=== PATIENT | female | born 1945 | race Caucasian/White ===

== ENCOUNTER 2017-09-04 06:04 | Inpatient (IN) | payer MEDICARE, OTHER ==
[~2017-09-04] VITALS: Ht 152.4 cm; Wt 71.8 kg
[~2017-09-04 06:04] MED LIST: CLINDAMYCIN 600 MG/D5% WATER 50 ML IV ONE; RINGERS SOLUTION,LACTATED 1,000 ML IV ONE
[2017-09-04] MEDS ORDERED: VANCOMYCIN HCL 1 GM/VIAL ONE (06:55)
[2017-09-04] MEDS ORDERED: BUPIVACAINE HCL/PF 0.5% 30 ML VIAL ONE (06:55)
[2017-09-04] MEDS ORDERED: CYCLOBENZAPRINE HCL 10 MG TABLET PO PRN (07:00)
[2017-09-04] MEDS ORDERED: FentaNYL CITRATE-PF 100 MCG/2 ML VIAL IVP PRN (07:00)
[2017-09-04] MEDS ORDERED: MEPERIDINE-PF 25 MG/ML SYRINGE IVP PRN (07:00)
[2017-09-04] MEDS ORDERED: BUPIVACAINE LIPOSOME/PF 1.3%-13.3MG/ML SUSPENSION 10 ML VIAL INJ ONE (07:00)
[2017-09-04] MEDS ORDERED: ZOLPIDEM TARTRATE 5 MG TABLET PO PRN (07:00)
[2017-09-04] MEDS ORDERED: ONDANSETRON HCL 4 MG/2 ML VIAL IVP PRN ×2 (07:00→07:45)
[2017-09-04] MEDS ORDERED: PROMETHAZINE HCL 25 MG/ML VIAL IM PRN (07:00)
[2017-09-04] MEDS ORDERED: HYDROmorphone 2 MG/ML SYRINGE IVP PRN (07:00)
[2017-09-04] MEDS ORDERED: INSLAN SQ (07:02)
[2017-09-04] MEDS ORDERED: SIMV-261 PO (07:02)
[2017-09-04] MEDS ORDERED: HYDR25TA PO (07:02)
[2017-09-04] MEDS ORDERED: PRAM0.258 PO (07:02)
[2017-09-04] MEDS ORDERED: OMEG10005 PO (07:02)
[2017-09-04] MEDS ORDERED: RABE20TA60 PO (07:02)
[2017-09-04] MEDS ORDERED: METF500T4 PO (07:02)
[2017-09-04] MEDS ORDERED: FOSI20 PO (07:02)
[2017-09-04 07:06] LABS: BASOPHILS % (AUTO) 0.5 % (0.0-2.0); EOSINOPHILS % (AUTO) 4.2 % (1.0-6.0); HEMATOCRIT 36.9 % (36-46); HEMOGLOBIN 12.5 g/dL (12.0-16.0); LYMPHOCYTES # (AUTO) 1.7 K/uL (1.0-4.8); LYMPHOCYTES % (AUTO) 24.7 % (22.0-44.0); MEAN CORPUSCULAR HEMOGLOBIN 30.5 pg (26.0-34.0); MEAN CORPUSCULAR HGB CONC 33.8 G/dL (31.0-37.0); MEAN CORPUSCULAR VOLUME 90 fL (80-100); MONOCYTES # (AUTO) 0.4 K/uL (0.1-1.0); MONOCYTES % (AUTO) 6.2 % (2.0-9.0); NEUTROPHILS # (AUTO) 4.3 K/uL (1.8-7.7); NEUTROPHILS % (AUTO) 64.4 % (40.0-70.0); PLATELET COUNT (AUTO) 152 K/uL (150-450); RED BLOOD CELL COUNT(AUTO) 4.08 MIL/uL (4.00-5.20); RED CELL DISTRIBUTION WIDTH 13.2 % (11.5-14.5)
[2017-09-04 07:11] LABS: CALCIUM, TOTAL 9.3 mg/dL (8.8-10.5); CREATININE 1.25 mg/dL (0.60-1.30); POTASSIUM 3.7 mmol/L (3.5-5.1)
[2017-09-04 07:12] LABS: PROTHROMBIN TIME 10.6 SEC (9.4-11.6)
[2017-09-04 07:17] LABS: ALBUMIN 3.7 g/dL (3.4-5.0); BILIRUBIN,TOTAL 0.3 mg/dL (0.1-1.0)
[2017-09-04] MEDS ORDERED: ZOLPIDEM TARTRATE 10 MG TABLET PO PRN (07:45)
[2017-09-04] MEDS ORDERED: DiphenhydrAMINE HCL 50 MG/ML VIAL IVP PRN (07:45)
[2017-09-04] MEDS ORDERED: BENZOCAINE/MENTHOL LOZENGE [8 LOZENGES/PACKET] PO PRN (07:45)
[2017-09-04] MEDS ORDERED: MAG HYDROX/AL HYDROX/SIMETH 30 ML SUSP UDCUP PO PRN (07:45)
[2017-09-04] MEDS: OXYGEN THERAPY IH SCH ×2 (08:00→20:00)
[2017-09-04] MEDS: DOCUSATE SODIUM 100 MG CAPSULE PO SCH ×2 (09:00→21:06)
[2017-09-04] MEDS ORDERED: HYDROmorphone 2 MG/ML SYRINGE ONE (09:28)
[2017-09-04] MEDS: HYDROmorphone 2 MG/ML SYRINGE IVP PRN ×2 (09:35→09:43)
[2017-09-04 09:50] VITALS: BP 174/76
[2017-09-04] MEDS ORDERED: ONDANSETRON HCL 4 MG/2 ML VIAL IVP ONE (12:00)
[2017-09-04] MEDS ORDERED: LIDOCAINE HCL/PF 2% 5 ML VIAL INJ ONE (12:00)
[2017-09-04] MEDS ORDERED: PROPOFOL 1% 20 ML VIAL IVP ONE (12:00)
[2017-09-04] MEDS ORDERED: METOCLOPRAMIDE HCL 5 MG/ML 2 ML VIAL IVP ONE (12:00)
[2017-09-04] MEDS ORDERED: SUCCINYLCHOLINE CHLORIDE 20 MG/ML 10 ML VIAL IVP ONE (12:00)
[2017-09-04] MEDS ORDERED: KETOROLAC TROMETHAMINE 60 MG/2 ML VIAL IM ONE (12:00)
[2017-09-04] MEDS ORDERED: EPHEDrine SULFATE 50 MG/ML VIAL IM ONE (12:00)
[2017-09-04] MEDS ORDERED: FentaNYL CITRATE-PF 100 MCG/2 ML VIAL IVP ONE (12:00)
[2017-09-04] MEDS ORDERED: MIDAZOLAM HCL 2 MG/2 ML VIAL IVP ONE (12:00)
[2017-09-04] MEDS ORDERED: 0.9% SODIUM CHLORIDE 10 ML VIAL IVP ONE (12:00)
[2017-09-04 16:32] VITALS: BP 143/75
[2017-09-04 17:43] LABS: GLUCOMETER DEV NAME(LOC) 4S 8; GLUCOSE,POINT OF CARE 161 MG/DL (70-110)
[2017-09-04] MEDS ORDERED: INFLUENZA VIRUS VACCINE QVS 2017-18 (3YR+)/PF 60 MCG/0.5 ML SYRINGE IM ONE (18:00)
[2017-09-04] MEDS: OxyCODONE HCL 5 MG IR TABLET PO PRN ×2 (18:35→23:36)
[2017-09-04] MEDS: MetFORMIN HCL 500 MG TABLET PO SCH (18:37)
[2017-09-04 20:23] VITALS: BP 136/84
[2017-09-04] MEDS ORDERED: RABEPRAZOLE SODIUM 20 MG PO SCH (21:00)
[2017-09-04] MEDS ORDERED: OMEGA-3/DHA/EPA/FISH OIL 500 MG CAPSULE PO SCH (21:00)
[2017-09-04] MEDS ORDERED: SIMVASTATIN 40 MG TABLET PO SCH (21:00)
[2017-09-04] MEDS ORDERED: PRAMIPEXOLE DI-HCL 0.25 MG TABLET PO SCH (21:00)
[2017-09-04] MEDS ORDERED: INSULIN GLARGINE,HUM.REC.ANLOG 100 UNITS/ML SQ SCH (21:00)
[2017-09-04 22:32] LABS: GLUCOMETER DEV NAME(LOC) PV 4E; GLUCOSE,POINT OF CARE 150 MG/DL (70-110)
[2017-09-04 23:38] VITALS: BP 131/75
[2017-09-05 04:25] VITALS: BP 110/54
[2017-09-05] MEDS: OxyCODONE HCL 5 MG IR TABLET PO PRN ×3 (04:32→09:12)
[2017-09-05 06:33] LABS: GLUCOMETER DEV NAME(LOC) PV 4E; GLUCOSE,POINT OF CARE 63 MG/DL (70-110)
[2017-09-05 07:47] VITALS: BP 128/61
[2017-09-05] MEDS: MetFORMIN HCL 500 MG TABLET PO SCH (08:50)
[2017-09-05] MEDS: DOCUSATE SODIUM 100 MG CAPSULE PO SCH (08:53)
[2017-09-05] MEDS ORDERED: FOSINOPRIL SODIUM 20 MG TABLET PO SCH (09:00)
[2017-09-05] MEDS ORDERED: HYDROCHLOROTHIAZIDE 25 MG TABLET PO SCH (09:00)
[2017-09-05 14:28] LABS: GLUCOMETER DEV NAME(LOC) PV 4E; GLUCOSE,POINT OF CARE 116 MG/DL (70-110)
[2017-10-20] MEDS ORDERED: INSLAN SQ (11:16)
[2017-10-20] MEDS ORDERED: METF500T4 PO (11:16)
[2017-10-20] MEDS ORDERED: LISI-662 PO (11:16)
== END 2017-09-05 10:15 | disposition home or self-care (01) | DRG 517 ==
LOC: 4E 06:05
PROVIDERS: ADMIT Orthopaedic Surgery Orthopaedic Surgery of the Spine; ATTEND Orthopaedic Surgery Orthopaedic Surgery of the Spine
PROC: 01NB0ZZ Release Lumbar Nerve, Open Approach (ICD-10-PCS; principal; 2017-09-04 07:50)
DX: M48.07 Spinal stenosis, lumbosacral region (principal); E11.9 Type 2 diabetes mellitus without complications; I10 Essential (primary) hypertension; E66.3 Overweight; K21.9 Gastro-esophageal reflux disease without esophagitis; Z68.30 Body mass index [BMI] 30.0-30.9, adult; Z88.0 Allergy status to penicillin; Z88.5 Allergy status to narcotic agent; Z90.710 Acquired absence of both cervix and uterus; Z85.038 Personal history of other malignant neoplasm of large intestine; Z87.891 Personal history of nicotine dependence
CPT/HCPCS: 82962; 87081; 93005; 97162; 97165; 97535; G0238; J0330; J1170; J1815; J1885; J2250; J2405; J2704; J2765; J3010; J3370; J3490; J7120

== ENCOUNTER 2017-10-23 09:34 | Inpatient (IN) | payer MEDICARE, OTHER ==
[~2017-10-23] VITALS: Ht 152.4 cm; Wt 61.4 kg
[~2017-10-23 09:34] MED LIST changes: +HYDR25TA PO; +INSLAN SQ; +LISI-662 PO; +METF500T4 PO; +OMEG10005 PO; +PRAM0.258 PO; +RABE20TA60 PO; +SIMV-261 PO
[2017-10-23 10:37] LABS: GLUCOMETER DEV NAME(LOC) SDS 5; GLUCOSE,POINT OF CARE 129 MG/DL (70-110)
[2017-10-23] MEDS ORDERED: BUPIVACAINE LIPOSOME/PF 1.3%-13.3MG/ML SUSPENSION 20 ML VIAL INJ ONE (11:45)
[2017-10-23] MEDS ORDERED: BUPIVACAINE HCL/PF 0.5% 30 ML VIAL ONE (11:52)
[2017-10-23] MEDS ORDERED: GUM MASTIC/STORAX/MSAL/ALCOHOL LIQUID 0.67 ML VIAL TP ONE (11:52)
[2017-10-23] MEDS ORDERED: VANCOMYCIN HCL 1 GM/VIAL ONE (11:52)
[2017-10-23] MEDS ORDERED: ZOLPIDEM TARTRATE 10 MG TABLET PO PRN ×2 (12:00→13:15)
[2017-10-23] MEDS ORDERED: PROMETHAZINE HCL 12.5 MG in SODIUM CHLORIDE 0.9% 50 ML IV PRN (12:00)
[2017-10-23] MEDS ORDERED: DiphenhydrAMINE HCL 50 MG/ML VIAL IVP PRN (12:00)
[2017-10-23] MEDS ORDERED: BENZOCAINE/MENTHOL LOZENGE [8 LOZENGES/PACKET] PO PRN (12:00)
[2017-10-23] MEDS ORDERED: KETAMINE HCL 50 MG/ML 10 ML VIAL ONE (12:25)
[2017-10-23] MEDS ORDERED: RINGERS SOLUTION,LACTATED 1,000 ML IV ONE (12:32)
[2017-10-23] MEDS ORDERED: HYDROmorphone 2 MG/ML SYRINGE IVP PRN (13:00)
[2017-10-23] MEDS ORDERED: HYDROmorphone 2 MG/ML SYRINGE ONE (14:08)
[2017-10-23] MEDS ORDERED: ACETAMINOPHEN 1000 MG/ISO-OSM 100 ML IV ONE (14:08)
[2017-10-23] MEDS: ACETAMINOPHEN 1000 MG/ISO-OSM 100 ML IV SCH ×2 (14:13→20:27)
[2017-10-23 14:53] VITALS: BP 164/79
[2017-10-23 16:10] VITALS: BP 130/64
[2017-10-23] MEDS: CYCLOBENZAPRINE HCL 10 MG TABLET PO SCH ×2 (16:30→20:27)
[2017-10-23 20:07] VITALS: BP 159/81
[2017-10-23] MEDS: DOCUSATE SODIUM 100 MG CAPSULE PO SCH (20:27)
[2017-10-23] MEDS ORDERED: SODIUM CHLORIDE 0.9% 500 ML IV ONE (21:19)
[2017-10-23 21:32] LABS: GLUCOMETER DEV NAME(LOC) PV 4E; GLUCOSE,POINT OF CARE 398 MG/DL (70-110)
[2017-10-23] MEDS ORDERED: INSULIN GLARGINE,HUM.REC.ANLOG 100 UNITS/ML SQ SCH (21:45)
[2017-10-23] MEDS ORDERED: PRAMIPEXOLE DI-HCL 0.25 MG TABLET PO SCH (23:15)
[2017-10-24 00:08] VITALS: BP 133/64
[2017-10-24] MEDS ORDERED: MIDAZOLAM HCL 2 MG/2 ML VIAL IVP ONE (01:23)
[2017-10-24] MEDS ORDERED: FentaNYL CITRATE-PF 100 MCG/2 ML VIAL IVP ONE (01:23)
[2017-10-24] MEDS ORDERED: DEXAMETHASONE SOD PHOS 4 MG/ML VIAL IVP ONE (04:51)
[2017-10-24] MEDS ORDERED: EPHEDrine SULFATE 50 MG/ML VIAL IM ONE (04:51)
[2017-10-24] MEDS ORDERED: LIDOCAINE HCL/PF 2% 5 ML VIAL INJ ONE (04:51)
[2017-10-24] MEDS ORDERED: GLYCOPYRROLATE 0.2 MG/ML VIAL IM ONE (04:51)
[2017-10-24] MEDS ORDERED: PROPOFOL 1% 20 ML VIAL IVP ONE (04:52)
[2017-10-24] MEDS ORDERED: ONDANSETRON HCL 4 MG/2 ML VIAL IVP ONE (04:52)
[2017-10-24] MEDS ORDERED: SUCCINYLCHOLINE CHLORIDE 20 MG/ML 10 ML VIAL IVP ONE (04:52)
[2017-10-24] MEDS ORDERED: METOCLOPRAMIDE HCL 5 MG/ML 2 ML VIAL IVP ONE (04:52)
[2017-10-24] MEDS ORDERED: ROCURONIUM BROMIDE 10 MG/ML 5 ML VIAL IVP ONE (04:52)
[2017-10-24] MEDS ORDERED: NEOSTIGMINE METHYLSULFATE 1 MG/ML 10 ML VIAL IVP ONE (04:52)
[2017-10-24] MEDS: ACETAMINOPHEN 1000 MG/ISO-OSM 100 ML IV SCH (05:55)
[2017-10-24 06:05] VITALS: BP 132/65
[2017-10-24 08:08] VITALS: BP 160/74
[2017-10-24] MEDS: DOCUSATE SODIUM 100 MG CAPSULE PO SCH (08:58)
[2017-10-24] MEDS: CYCLOBENZAPRINE HCL 10 MG TABLET PO SCH (08:59)
[2017-10-24] MEDS: MetFORMIN HCL 500 MG TABLET PO SCH ×2 (08:59→17:30)
[2017-10-24 09:52] LABS: GLUCOMETER DEV NAME(LOC) PV 4E; GLUCOSE,POINT OF CARE 333 MG/DL (70-110)
[2017-10-24 12:00] VITALS: BP 154/58
[2017-10-24] MEDS ORDERED: OxyCODONE HCL/ACETAMINOPHEN 5-325 MG TABLET PO PRN (13:00)
[2017-10-24 16:00] VITALS: BP 149/73
== END 2017-10-24 17:35 | disposition home or self-care (01) | DRG 520 ==
LOC: 4E 09:34
PROVIDERS: ADMIT Orthopaedic Surgery Orthopaedic Surgery of the Spine; ATTEND Orthopaedic Surgery Orthopaedic Surgery of the Spine
PROC: 00NY0ZZ Release Lumbar Spinal Cord, Open Approach (ICD-10-PCS; principal; 2017-10-23 11:45)
DX: M99.23 Subluxation stenosis of neural canal of lumbar region (principal); G47.33 Obstructive sleep apnea (adult) (pediatric); K21.9 Gastro-esophageal reflux disease without esophagitis; I10 Essential (primary) hypertension; Z79.899 Other long term (current) drug therapy; Z88.0 Allergy status to penicillin; Z88.5 Allergy status to narcotic agent; Z90.710 Acquired absence of both cervix and uterus; Z90.89 Acquired absence of other organs
CPT/HCPCS: 82962; 87081; 93005; 97161; 97165; C9290; J0131; J0330; J1100; J1170; J1815; J2250; J2405; J2704; J2765; J3010; J3370; J3490; J7040; J7120

== ENCOUNTER 2018-04-22 15:58 | Emergency (ER) | payer MEDICARE, OTHER ==
[~2018-04-22] VITALS: Ht 152.4 cm; Wt 60.5 kg
[~2018-04-22 15:58] MED LIST changes: -CLINDAMYCIN 600 MG/D5% WATER 50 ML IV ONE; -METF500T4 PO; +METF500T6 PO; -RINGERS SOLUTION,LACTATED 1,000 ML IV ONE
[2018-04-22] MEDS ORDERED: KETOROLAC TROMETHAMINE 30 MG/ML VIAL IVP ONE (16:15)
[2018-04-22] MEDS ORDERED: SODIUM CHLORIDE 0.9% 1,000 ML IV ONE (16:15)
[2018-04-22] MEDS ORDERED: ONDANSETRON HCL 4 MG/2 ML VIAL IVP ONE (16:15)
[2018-04-22 16:31] LABS: BASOPHILS % (AUTO) 0.6 % (0.0-2.0); EOSINOPHILS % (AUTO) 4.4 % (1.0-6.0); HEMATOCRIT 37.1 % (36-46); HEMOGLOBIN 12.5 g/dL (12.0-16.0); LYMPHOCYTES # (AUTO) 1.6 K/uL (1.0-4.8); LYMPHOCYTES % (AUTO) 19.9 % (22.0-44.0); MEAN CORPUSCULAR HEMOGLOBIN 29.9 pg (26.0-34.0); MEAN CORPUSCULAR HGB CONC 33.7 G/dL (31.0-37.0); MEAN CORPUSCULAR VOLUME 89 fL (80-100); MONOCYTES # (AUTO) 0.5 K/uL (0.1-1.0); MONOCYTES % (AUTO) 6.2 % (2.0-9.0); NEUTROPHILS # (AUTO) 5.5 K/uL (1.8-7.7); NEUTROPHILS % (AUTO) 68.9 % (40.0-70.0); PLATELET COUNT (AUTO) 152 K/uL (150-450); RED BLOOD CELL COUNT(AUTO) 4.19 MIL/uL (4.00-5.20); RED CELL DISTRIBUTION WIDTH 14.6 % (11.5-14.5)
[2018-04-22 16:39] LABS: CALCIUM, TOTAL 9.3 mg/dL (8.8-10.5); CREATININE 1.31 mg/dL (0.60-1.30); POTASSIUM 3.6 mmol/L (3.5-5.1)
[2018-04-22 16:47] LABS: ALBUMIN 3.7 g/dL (3.4-5.0); BILIRUBIN,TOTAL 0.2 mg/dL (0.1-1.0)
[2018-04-22] MEDS ORDERED: CIPROFLOXACIN HCL 250 MG TABLET PO ONE (18:15)
[2018-04-22] MEDS ORDERED: PHENAZOPYRIDINE HCL 100 MG TABLET PO ONE (18:15)
[2018-04-22 18:18] LABS: APPEARANCE,URINE CLOUDY (CLEAR); BILIRUBIN,URINE NEGATIVE (NEGATIVE); GLUCOSE, URINE (UA) NEGATIVE (NEGATIVE); KETONES,URINE TRACE mg/dL (NEGATIVE); LEUKOCYTE ESTERASE ,URINE SMALL (NEGATIVE); NITRATE,URINE POSITIVE (NEGATIVE); OCCULT BLOOD,URINE LARGE (NEGATIVE); PROTEIN,URINE POS 1+ (NEGATIVE); UROBILINOGEN,URINE 0.2 mg/dL (<=1.0)
[2018-04-22 18:28] LABS: BACTERIA,URINE Many /HPF (None Seen)
[2018-04-22 18:29] LABS: SQUAMOUS EPITHELIAL CELL,UR Few /LPF (None Seen); WBC,URINE 0-2 /HPF (0-5)
[2018-04-22 18:47] VITALS: BP 125/89
== END 2018-04-22 18:48 | disposition home or self-care (01) ==
LOC: EMS 16:00
DX: N20.1 Calculus of ureter (principal); N39.0 Urinary tract infection, site not specified; E11.9 Type 2 diabetes mellitus without complications; I10 Essential (primary) hypertension; Z79.4 Long term (current) use of insulin; Z87.891 Personal history of nicotine dependence
CPT/HCPCS: 36415; 74176; 80053; 81001; 85025; 87077; 87086; 87186; 96361; 96374; 96375; 99285; J1885; J2405; J7030

== ENCOUNTER 2018-08-20 05:39 | Inpatient (IN) | payer MEDICARE, OTHER ==
[2018-08-14 13:41] LABS: BASOPHILS % (AUTO) 0.7 % (0.0-2.0); HEMATOCRIT 36.9 % (36-46); HEMOGLOBIN 12.1 g/dL (12.0-16.0); LYMPHOCYTES # (AUTO) 1.2 K/uL (1.0-4.8); LYMPHOCYTES % (AUTO) 21.9 % (22.0-44.0); MEAN CORPUSCULAR HEMOGLOBIN 29.8 pg (26.0-34.0); MEAN CORPUSCULAR HGB CONC 32.8 G/dL (31.0-37.0); MEAN CORPUSCULAR VOLUME 91 fL (80-100); MONOCYTES # (AUTO) 0.3 K/uL (0.1-1.0); MONOCYTES % (AUTO) 6.3 % (2.0-9.0); NEUTROPHILS # (AUTO) 3.7 K/uL (1.8-7.7); NEUTROPHILS % (AUTO) 68.1 % (40.0-70.0); PLATELET COUNT (AUTO) 144 K/uL (150-450); RED BLOOD CELL COUNT(AUTO) 4.07 MIL/uL (4.00-5.20); RED CELL DISTRIBUTION WIDTH 14.3 % (11.5-14.5)
[2018-08-14 13:48] LABS: CALCIUM, TOTAL 9.5 mg/dL (8.8-10.5); CREATININE 1.24 mg/dL (0.60-1.30); POTASSIUM 4.5 mmol/L (3.5-5.1)
[2018-08-14 13:54] LABS: PROTHROMBIN TIME 10.2 SEC (9.4-11.6)
[~2018-08-20] VITALS: Ht 152.4 cm; Wt 61.8 kg
[~2018-08-20 05:39] MED LIST changes: +ASPI-556 PO; +FISH1CAP50 PO; -LISI-662 PO; +LISI40TA4 PO; +METF-960 PO; -METF500T6 PO; -OMEG10005 PO; +RINGERS SOLUTION,LACTATED 1,000 ML IV ONE
[2018-08-20] MEDS ORDERED: RINGERS SOLUTION,LACTATED 1,000 ML IV ONE ×2 (06:00→09:19)
[2018-08-20] MEDS ORDERED: CLINDAMYCIN 600 MG/D5% WATER 50 ML IV ONE (06:00)
[2018-08-20 06:40] LABS: GLUCOMETER DEV NAME(LOC) SDS 5; GLUCOSE,POINT OF CARE 126 MG/DL (70-110)
[2018-08-20] MEDS ORDERED: CITRIC ACID/SODIUM CITRATE 30 ML SOLUTION UDCUP ONE (06:51)
[2018-08-20] MEDS ORDERED: BUPIVACAINE HCL/PF 0.5% 30 ML VIAL ONE (06:58)
[2018-08-20] MEDS ORDERED: CITRIC ACID/SODIUM CITRATE 30 ML SOLUTION UDCUP PO ONE (07:00)
[2018-08-20] MEDS: BUPIVACAINE LIPOSOME/PF 1.3%-13.3MG/ML SUSPENSION 10 ML VIAL INJ ONE ×2 (07:00→08:30)
[2018-08-20] MEDS ORDERED: ACETAMINOPHEN 1000 MG/ISO-OSM 100 ML IV ONE (07:19)
[2018-08-20] MEDS: MetFORMIN HCL 500 MG TABLET PO SCH ×2 (08:00→17:50)
[2018-08-20] MEDS: LISINOPRIL 20 MG TABLET PO SCH (09:00)
[2018-08-20] MEDS ORDERED: HYDROmorphone 2 MG/ML SYRINGE ONE (10:12)
[2018-08-20] MEDS ORDERED: MEPERIDINE-PF 25 MG/ML VIAL ONE (10:12)
[2018-08-20] MEDS ORDERED: FentaNYL CITRATE-PF 100 MCG/2 ML VIAL IVP PRN (10:15)
[2018-08-20] MEDS ORDERED: HYDROmorphone 2 MG/ML SYRINGE IVP PRN (10:15)
[2018-08-20] MEDS ORDERED: MEPERIDINE-PF 25 MG/ML VIAL IVP PRN (10:15)
[2018-08-20 11:00] VITALS: BP 143/70
[2018-08-20] MEDS ORDERED: ONDANSETRON HCL 4 MG/2 ML VIAL IVP PRN (11:30)
[2018-08-20] MEDS: HYDROCHLOROTHIAZIDE 25 MG TABLET PO SCH (11:52)
[2018-08-20] MEDS: HYDROmorphone 2 MG/ML SYRINGE IVP PRN ×2 (11:54→21:33)
[2018-08-20] MEDS ORDERED: NEOSTIGMINE METHYLSULFATE 1 MG/ML 10 ML VIAL IVP ONE (12:00)
[2018-08-20] MEDS ORDERED: 0.9% SODIUM CHLORIDE 10 ML VIAL IVP ONE (12:00)
[2018-08-20] MEDS ORDERED: ROCURONIUM BROMIDE 10 MG/ML 5 ML VIAL IVP ONE (12:00)
[2018-08-20] MEDS ORDERED: ONDANSETRON HCL 4 MG/2 ML VIAL IVP ONE (12:00)
[2018-08-20] MEDS ORDERED: EPHEDrine SULFATE 50 MG/ML VIAL IM ONE (12:00)
[2018-08-20] MEDS ORDERED: PROPOFOL 1% 20 ML VIAL IVP ONE (12:00)
[2018-08-20] MEDS ORDERED: FentaNYL CITRATE-PF 250 MCG/5 ML VIAL IVP ONE (12:00)
[2018-08-20] MEDS ORDERED: LIDOCAINE/PF 2% 5 ML VIAL INJ ONE (12:00)
[2018-08-20] MEDS ORDERED: GLYCOPYRROLATE 0.2 MG/ML VIAL IM ONE (12:00)
[2018-08-20] MEDS ORDERED: HYDROmorphone 2 MG/ML SYRINGE IVP ONE (12:00)
[2018-08-20] MEDS ORDERED: SODIUM CHLORIDE 0.9% 500 ML IV ONE (13:43)
[2018-08-20] MEDS: ACETAMINOPHEN 1000 MG/ISO-OSM 100 ML IV SCH ×2 (13:52→18:44)
[2018-08-20 15:33] VITALS: BP 138/72
[2018-08-20 19:16] VITALS: BP 105/52
[2018-08-20] MEDS: OXYGEN THERAPY IH SCH (20:00)
[2018-08-20] MEDS: SIMVASTATIN 40 MG TABLET PO SCH (20:16)
[2018-08-20] MEDS: PRAMIPEXOLE DI-HCL 0.25 MG TABLET PO SCH (20:16)
[2018-08-20] MEDS: INSULIN GLARGINE,HUM.REC.ANLOG 100 UNITS/ML SQ SCH (21:02)
[2018-08-20 21:44] LABS: GLUCOMETER DEV NAME(LOC) PV 4E2; GLUCOSE,POINT OF CARE 194 MG/DL (70-110)
[2018-08-20 23:22] VITALS: BP 107/53
[2018-08-21] MEDS: ACETAMINOPHEN 1000 MG/ISO-OSM 100 ML IV SCH ×2 (00:32→06:46)
[2018-08-21] MEDS: HYDROmorphone 2 MG/ML SYRINGE IVP PRN ×3 (04:42→09:23)
[2018-08-21 04:43] VITALS: BP 127/60
[2018-08-21 07:03] LABS: GLUCOMETER DEV NAME(LOC) PV 4E2; GLUCOSE,POINT OF CARE 177 MG/DL (70-110)
[2018-08-21] MEDS: OXYGEN THERAPY IH SCH ×2 (08:00→20:00)
[2018-08-21 08:13] VITALS: BP 108/51
[2018-08-21] MEDS: LISINOPRIL 20 MG TABLET PO SCH (08:48)
[2018-08-21] MEDS: HYDROCHLOROTHIAZIDE 25 MG TABLET PO SCH (08:48)
[2018-08-21] MEDS: MetFORMIN HCL 500 MG TABLET PO SCH ×2 (08:48→17:37)
[2018-08-21 12:20] VITALS: BP 128/64
[2018-08-21] MEDS: OxyCODONE HCL/ACETAMINOPHEN 10-325 MG TABLET PO PRN ×3 (13:10→21:25)
[2018-08-21] MEDS: PANTOPRAZOLE SODIUM 40 MG DR TABLET PO SCH (14:15)
[2018-08-21 16:00] VITALS: BP 120/63
[2018-08-21] MEDS: PRAMIPEXOLE DI-HCL 0.25 MG TABLET PO SCH (20:08)
[2018-08-21] MEDS: SIMVASTATIN 40 MG TABLET PO SCH (20:08)
[2018-08-21] MEDS: INSULIN GLARGINE,HUM.REC.ANLOG 100 UNITS/ML SQ SCH (20:13)
[2018-08-21 20:43] VITALS: BP 111/54
[2018-08-21 23:39] VITALS: BP 108/52
[2018-08-21 23:54] LABS: GLUCOMETER DEV NAME(LOC) PV 4E2; GLUCOSE,POINT OF CARE 156 MG/DL (70-110)
[2018-08-21 23:54] LABS: GLUCOMETER DEV NAME(LOC) PV 4E2; GLUCOSE,POINT OF CARE 139 MG/DL (70-110)
[2018-08-22] MEDS: OxyCODONE HCL/ACETAMINOPHEN 10-325 MG TABLET PO PRN ×3 (02:21→10:48)
[2018-08-22 06:44] LABS: GLUCOMETER DEV NAME(LOC) PV 4E2; GLUCOSE,POINT OF CARE 110 MG/DL (70-110)
[2018-08-22] MEDS: OXYGEN THERAPY IH SCH (08:00)
[2018-08-22 08:09] VITALS: BP 131/60
[2018-08-22] MEDS: MetFORMIN HCL 500 MG TABLET PO SCH (08:10)
[2018-08-22] MEDS: LISINOPRIL 20 MG TABLET PO SCH (08:10)
[2018-08-22] MEDS: PANTOPRAZOLE SODIUM 40 MG DR TABLET PO SCH (08:11)
[2018-08-22] MEDS: HYDROCHLOROTHIAZIDE 25 MG TABLET PO SCH (08:11)
== END 2018-08-22 11:00 | disposition home or self-care (01) | DRG 460 ==
LOC: 4E 05:39
PROVIDERS: ADMIT Orthopaedic Surgery Orthopaedic Surgery of the Spine; ATTEND Orthopaedic Surgery Orthopaedic Surgery of the Spine
PROC: 0SG30A0 Fusion of Lumbosacral Joint with Interbody Fusion Device, Anterior Approach, Anterior Column, Open Approach (ICD-10-PCS; 2018-08-20)
PROC: 0SG00A0 Fusion of Lumbar Vertebral Joint with Interbody Fusion Device, Anterior Approach, Anterior Column, Open Approach (ICD-10-PCS; principal; 2018-08-20 07:30)
PROC: 3E02340 Introduction of Influenza Vaccine into Muscle, Percutaneous Approach (ICD-10-PCS; 2018-08-22)
DX: M48.07 Spinal stenosis, lumbosacral region (principal); E11.9 Type 2 diabetes mellitus without complications; I10 Essential (primary) hypertension; K21.9 Gastro-esophageal reflux disease without esophagitis; M54.5 Low back pain; R01.1 Cardiac murmur, unspecified; G89.29 Other chronic pain; Z87.442 Personal history of urinary calculi; Z90.710 Acquired absence of both cervix and uterus; Z23 Encounter for immunization; Z79.899 Other long term (current) drug therapy
CPT/HCPCS: 87081; 88300; 90686; 93005; 93306; 97161; 97165; 97530; 97535; G0238; J0131; J1170; J1815; J2175; J2405; J2704; J3010; J3490; J7040; J7120

== ENCOUNTER 2019-02-27 23:24 | Emergency (ER) | payer MEDICARE, OTHER ==
[~2019-02-27] VITALS: Ht 165.1 cm; Wt 60.9 kg
[~2019-02-27 23:24] MED LIST changes: -RINGERS SOLUTION,LACTATED 1,000 ML IV ONE
[2019-02-27 23:44] LABS: GLUCOSE,POINT OF CARE 215 MG/DL (70-110)
[2019-02-28 01:38] LABS: APPEARANCE,URINE CLOUDY (CLEAR); BILIRUBIN,URINE NEGATIVE (NEGATIVE); GLUCOSE, URINE (UA) NEGATIVE (NEGATIVE); KETONES,URINE NEGATIVE (NEGATIVE); LEUKOCYTE ESTERASE ,URINE MODERATE (NEGATIVE); NITRATE,URINE POSITIVE (NEGATIVE); OCCULT BLOOD,URINE LARGE (NEGATIVE); PROTEIN,URINE TRACE (NEGATIVE); UROBILINOGEN,URINE 0.2 mg/dL (<=1.0)
[2019-02-28 01:47] LABS: BACTERIA,URINE Moderate /HPF (None Seen); SQUAMOUS EPITHELIAL CELL,UR Moderate /LPF (None Seen); WBC,URINE 26-50 /HPF (0-5)
[2019-02-28] MEDS ORDERED: CefTRIAXone SODIUM 1 GM/VIAL IM ONE (02:15)
[2019-02-28] MEDS ORDERED: KETOROLAC TROMETHAMINE 60 MG/2 ML VIAL IM ONE (02:15)
[2019-02-28] MEDS ORDERED: LIDOCAINE/PF 1% 2 ML VIAL IM ONE (02:15)
[2019-02-28 02:28] LABS: HEMATOCRIT 29.1 % (36-46); HEMOGLOBIN 9.4 g/dL (12.0-16.0); MEAN CORPUSCULAR HGB CONC 32.4 G/dL (31.0-37.0); MEAN CORPUSCULAR VOLUME 87 fL (80-100); PLATELET COUNT (AUTO) 101 K/uL (150-450); RED BLOOD CELL COUNT(AUTO) 3.36 MIL/uL (4.00-5.20); RED CELL DISTRIBUTION WIDTH 14.8 % (11.5-14.5)
[2019-02-28 02:39] LABS: CREATININE 1.47 mg/dL (0.60-1.30); POTASSIUM 3.8 mmol/L (3.5-5.1)
[2019-02-28 02:43] LABS: ALBUMIN 2.8 g/dL (3.4-5.0); BILIRUBIN,TOTAL 0.4 mg/dL (0.1-1.0); TOTAL PROTEIN, SERUM 6.8 g/dL (6.4-8.2)
[2019-02-28 02:48] LABS: BAND NEUTROPHILS % (MANUAL) 15 % (0-5); LYMPHOCYTES % (MANUAL) 5 % (22-44); MONOCYTES % (MANUAL) 4 % (2-9); SEGMENTED NEUTROPHILS % 76 % (40-70)
[2019-02-28 04:06] VITALS: BP 114/76
== END 2019-02-28 04:11 | disposition home or self-care (01) ==
LOC: EMS 23:25
DX: N39.0 Urinary tract infection, site not specified (principal); N20.0 Calculus of kidney; E11.9 Type 2 diabetes mellitus without complications; I10 Essential (primary) hypertension; Z87.891 Personal history of nicotine dependence; Z90.710 Acquired absence of both cervix and uterus; Z88.0 Allergy status to penicillin; Z88.5 Allergy status to narcotic agent; Z79.84 Long term (current) use of oral hypoglycemic drugs; Z79.4 Long term (current) use of insulin; Z79.899 Other long term (current) drug therapy
CPT/HCPCS: 36415; 74176; 80053; 81001; 82962; 85025; 87077; 87086; 87186; 96372; 99284; J0696; J1885; J3490